=== PATIENT | female | born 1965 | race Caucasian/White ===

== ENCOUNTER 2018-02-16 16:26 | Emergency (ER) | payer OTHER ==
[2018-02-16] MEDS ORDERED: ACETAMINOPHEN 325 MG TABLET PO ONE (17:17)
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
[2018-02-16 18:36] VITALS: BP 122/75
== END 2018-02-16 18:36 | disposition home or self-care (01) ==
LOC: ER 16:26
DX: S06.0X0A Concussion without loss of consciousness, initial encounter (principal); V49.40XA Driver injured in collision with unspecified motor vehicles in traffic accident, initial encounter; W22.11XA Striking against or struck by driver side automobile airbag, initial encounter; R51 Headache; R11.0 Nausea; Z88.8 Allergy status to other drugs, medicaments and biological substances; Z88.4 Allergy status to anesthetic agent
CPT/HCPCS: 70450; 99284